=== PATIENT | female | born 1970 | race American Indian/Alaskan Native ===

== ENCOUNTER 2016-12-08 12:52 | Emergency (ER) | payer SELFPAY ==
[2016-12-08 13:44] VITALS: BP 131/79
[2016-12-08] MEDS ORDERED: CLEOCIN PO ONE (14:13)
[2016-12-08] MEDS ORDERED: NORCO 5/325 PO ONE (14:13)
--- NOTE | 2016-12-08 14:17 | Emergency Department Report ---
ED ENT HPI - General Chief complaint: Dental/Oral Stated complaint: SWOLLEN MOUTH Time Seen by Provider: 12/08/16 14:13 Source: patient Mode of arrival: Ambulatory Limitations: No Limitations - History of Present Illness Initial comments: Patient reports upper left dental pain with facial swelling that started three days ago complaint: tooth pain Onset/Timin -: days(s) Location: tooth # (10) 1 - tenderness with palpation Severity: severe Severity scale (0 -10): 10 Quality: aching, constant, other (throbbing) Consistency: constant Improves with: none Worsens with: eating Context-Epistaxis: other (none) Context- Dental: history of dental caries, poor dental care Context- Ear: other (none) Associated Symptoms: gum swelling, toothache. denies: fever, cough, pain with swallowing, sore throat, tinnitus, hearing loss, discharge from ear, rhinorrhea - Related Data Home Medications Medication Instructions Recorded Confirmed Last Taken Carvedilol [Coreg] 25 mg PO BID 07/09/14 07/09/14 07/09/14 Clopidogrel Bisulfate [Plavix] 75 mg PO DAILY 07/09/14 07/09/14 07/09/14 Sennosides [Senna Lax] 8.6 mg PO DAILY 07/09/14 07/09/14 07/09/14 levETIRAcetam [Keppra] 500 mg PO BID 07/09/14 07/09/14 07/09/14 Previous Rx's Medication Instructions Recorded Last Taken Type Acetaminophen/Codeine [Tylenol #3] 1 tab PO Q6H PRN #15 tab 11/14/14 Unknown Rx traMADol [Ultram 50 MG tab] 50 mg PO Q6HR PRN #20 tablet 11/14/14 Unknown Rx Clindamycin [Clindamycin CAP] 300 mg PO Q8H #30 cap 12/08/16 Unknown Rx HYDROcodone/APAP 5-325 [[place] 1 each PO Q6HR PRN #10 tablet 12/08/16 Unknown Rx 5/325] Ibuprofen [Motrin 600 MG tab] 600 mg PO Q8H PRN #30 tablet 12/08/16 Unknown Rx Allergies Allergy/AdvReac Type Severity Reaction Status Date / Time No Known Allergies Allergy Unverified 02/07/14 18:03 ED Dental HPI - General Chief complaint: Dental/Oral Stated complaint: SWOLLEN MOUTH Source: patient Mode of arrival: Ambulatory Limitations: No Limitations - Related Data Home Medications Medication Instructions Recorded Confirmed Last Taken Carvedilol [Coreg] 25 mg PO BID 07/09/14 07/09/14 07/09/14 Clopidogrel Bisulfate [Plavix] 75 mg PO DAILY 07/09/14 07/09/14 07/09/14 Sennosides [Senna Lax] 8.6 mg PO DAILY 07/09/14 07/09/14 07/09/14 levETIRAcetam [Keppra] 500 mg PO BID 07/09/14 07/09/14 07/09/14 Previous Rx's Medication Instructions Recorded Last Taken Type Acetaminophen/Codeine [Tylenol #3] 1 tab PO Q6H PRN #15 tab 11/14/14 Unknown Rx traMADol [Ultram 50 MG tab] 50 mg PO Q6HR PRN #20 tablet 11/14/14 Unknown Rx Clindamycin [Clindamycin CAP] 300 mg PO Q8H #30 cap 12/08/16 Unknown Rx HYDROcodone/APAP 5-325 [[place] 1 each PO Q6HR PRN #10 tablet 12/08/16 Unknown Rx 5/325] Ibuprofen [Motrin 600 MG tab] 600 mg PO Q8H PRN #30 tablet 12/08/16 Unknown Rx Allergies Allergy/AdvReac Type Severity Reaction Status Date / Time No Known Allergies Allergy Unverified 02/07/14 18:03 ED Review of Systems ROS: Stated complaint: SWOLLEN MOUTH Other details as noted in HPI Constitutional: denies: chills, diaphoresis, fever, malaise, weakness Eyes: denies: eye pain, vision change ENT: dental pain. denies: ear pain, throat pain, hearing loss, epistaxis, congestion Respiratory: denies: cough, orthopnea, shortness of breath, SOB with exertion, SOB at rest, stridor, wheezing Cardiovascular: denies: chest pain, palpitations, dyspnea on exertion, orthopnea , edema, syncope, paroxysmal nocturnal dyspnea Gastrointestinal: denies: abdominal pain, nausea, vomiting, diarrhea Musculoskeletal: denies: back pain, joint swelling, arthralgia Skin: denies: rash, lesions, change in color, change in hair/nails, pruritus Neurological: denies: headache, weakness Psychiatric: denies: anxiety, depression Hematological/Lymphatic: denies: easy bleeding, easy bruising, swollen glands ED Past Medical Hx - Past Medical History Previous Medical History?: No Hx Psychiatric Treatment: Yes (ETOH abuse/cocaine abuse) - Surgical History Past Surgical History?: No - Social History Smoking Status: Current Every Day Smoker Substance Use Type: None - Medications Home Medications: Home Medications Medication Instructions Recorded Confirmed Last Taken Type Carvedilol [Coreg] 25 mg PO BID 07/09/14 07/09/14 07/09/14 History Clopidogrel Bisulfate [Plavix] 75 mg PO DAILY 07/09/14 07/09/14 07/09/14 History Sennosides [Senna Lax] 8.6 mg PO DAILY 07/09/14 07/09/14 07/09/14 History levETIRAcetam [Keppra] 500 mg PO BID 07/09/14 07/09/14 07/09/14 History Acetaminophen/Codeine [Tylenol #3] 1 tab PO Q6H PRN #15 tab 11/14/14 Unknown Rx traMADol [Ultram 50 MG tab] 50 mg PO Q6HR PRN #20 tablet 11/14/14 Unknown Rx Clindamycin [Clindamycin CAP] 300 mg PO Q8H #30 cap 12/08/16 Unknown Rx HYDROcodone/APAP 5-325 [[place] 1 each PO Q6HR PRN #10 tablet 12/08/16 Unknown Rx 5/325] Ibuprofen [Motrin 600 MG tab] 600 mg PO Q8H PRN #30 tablet 12/08/16 Unknown Rx ED Physical Exam - General Limitations: No Limitations General appearance: alert, in no apparent distress - Head Head exam: Present: atraumatic, normocephalic, normal inspection - Eye Eye exam: Present: normal appearance, PERRL, EOMI Pupils: Present: normal accommodation - ENT ENT exam: Present: mucous membranes moist, TM's normal bilaterally, normal external ear exam. Absent: mucous membranes dry - Expanded ENT Exam Expanded Ear exam: Present: normal external inspection. Absent: auricular hematoma, auricular trauma Mouth exam: Present: normal external inspection, tongue normal. Absent: drooling, trismus, muffled voice, tongue elevation, laceration Teeth exam: Present: dental tenderness # (10), gingival enlargement. Absent: dental caries, fractured tooth # Throat exam: Positive: normal inspection. Negative: tonsillar erythema, tonsillomegaly, tonsillar exudate, R peritonsillar mass, L peritonsillar mass - Neck Neck exam: Present: normal inspection, full ROM. Absent: tenderness, meningismus, lymphadenopathy, thyromegaly - Respiratory Respiratory exam: Present: normal lung sounds bilaterally. Absent: respiratory distress, wheezes, rales, rhonchi, stridor, chest wall tenderness, accessory muscle use, decreased breath sounds, prolonged expiratory - Cardiovascular Cardiovascular Exam: Present: regular rate, normal rhythm, normal heart sounds. Absent: bradycardia, tachycardia, irregular rhythm, systolic murmur, diastolic murmur, rubs, gallop - Extremities Exam Extremities exam: Present: normal inspection, full ROM, normal capillary refill. Absent: tenderness, pedal edema, joint swelling - Back Exam Back exam: Present: normal inspection, full ROM - Neurological Exam Neurological exam: Present: alert, oriented X3, CN II-XII intact, normal gait, reflexes normal. Absent: motor sensory deficit - Psychiatric Psychiatric exam: Present: normal affect, normal mood. Absent: depressed, agitated - Skin Skin exam: Present: warm, dry, intact, normal color. Absent: rash ED Course Vital Signs 12/08/16 13:39 Temperature 97.8 F Pulse Rate 71 Blood Pressure 131/79 O2 Sat by Pulse 100 Oximetry - Reevaluation(s) Reevaluation #1: 12/08/16 14:21 oral antibiotic and pain medication ordered ED Medical Decision Making - Lab Data Vital Signs 12/08/16 13:39 Temperature 97.8 F Pulse Rate 71 Blood Pressure 131/79 O2 Sat by Pulse 100 Oximetry - Medical Decision Making During the course of ED, oral pain and antibiotic medications were ordered. Patient was sent home with prescriptions for Ibuprofen, Clindamycin and [place], instructed to follow up with dentistry this week, she verbalized understanding - Differential Diagnosis Dental Pain, Dental Abscess Critical care attestation.: If time is entered above; I have spent that time in minutes in the direct care of this critically ill patient, excluding procedure time. ED Disposition Clinical Impression: Pain, dental Disposition: DC-01 TO HOME OR SELFCARE Is pt being admited?: No Does the pt Need Aspirin: No Condition: Stable Instructions: Toothache (ED) Additional Instructions: Take medication as directed. No drinking, driving or operating heavy machinery while taking pain medication. Follow up with the selective referral given at discharge. Return back to the ED for worsening symptoms or concerns Prescriptions: Clindamycin [Clindamycin CAP] 300 mg PO Q8H #30 cap HYDROcodone/APAP 5-325 [[place] 5/325] 1 each PO Q6HR PRN #10 tablet PRN Reason: Pain , Severe (7-10) Ibuprofen [Motrin 600 MG tab] 600 mg PO Q8H PRN #30 tablet PRN Reason: Pain Referrals: [facility] [Outside] - 3-5 Days [facility] [Outside] - 3-5 Days Forms: Work/School Release Form(ED) Time of Disposition: 14:29
== END 2016-12-08 15:01 | disposition home or self-care (01) ==
LOC: ED 12:52
DX: K08.89 Other specified disorders of teeth and supporting structures (principal); R22.0 Localized swelling, mass and lump, head; F14.10 Cocaine abuse, uncomplicated; F17.200 Nicotine dependence, unspecified, uncomplicated
CPT/HCPCS: 99282

== ENCOUNTER 2018-01-07 13:53 | Emergency (ER) | payer SELFPAY ==
[2018-01-07 15:03] VITALS: BP 138/92
[2018-01-07] MEDS ORDERED: COLCHICINE PO ONE ×2 (15:36)
[2018-01-07] MEDS ORDERED: MOTRIN PO ONE (15:36)
--- NOTE | 2018-01-07 15:37 | Emergency Department Report ---
ED Extremity Problem HPI - General Chief complaint: Extremity Injury, Lower Stated complaint: RT FOOT SWELLING Time Seen by Provider: 01/07/18 15:26 Source: patient Mode of arrival: Ambulatory Limitations: No Limitations - History of Present Illness Initial comments: Patient is a 48 Female who is presenting with right foot pain for approximately a month. Patient states she has difficulty time wearing shoes. The majority of her pain is at the base of the great toe. Patient does drink socially quite frequently. She denies any trauma or fevers chills nausea vomiting. Patient states the pain is 8 out of 10 in severity and sometimes radiates up into the leg. Patient denies any calf swelling. - Related Data Home Medications Medication Instructions Recorded Confirmed Last Taken Carvedilol [Coreg] 25 mg PO BID 07/09/14 07/09/14 07/09/14 Clopidogrel Bisulfate [Plavix] 75 mg PO DAILY 07/09/14 07/09/14 07/09/14 Sennosides [Senna Lax] 8.6 mg PO DAILY 07/09/14 07/09/14 07/09/14 levETIRAcetam [Keppra] 500 mg PO BID 07/09/14 07/09/14 07/09/14 Previous Rx's Medication Instructions Recorded Last Taken Type Acetaminophen/Codeine [Tylenol #3] 1 tab PO Q6H PRN #15 tab 11/14/14 Unknown Rx traMADol [Ultram 50 MG tab] 50 mg PO Q6HR PRN #20 tablet 11/14/14 Unknown Rx Clindamycin [Clindamycin CAP] 300 mg PO Q8H #30 cap 12/08/16 Unknown Rx HYDROcodone/APAP 5-325 [[place] 1 each PO Q6HR PRN #10 tablet 12/08/16 Unknown Rx 5/325] Ibuprofen [Motrin 600 MG tab] 600 mg PO Q8H PRN #30 tablet 12/08/16 Unknown Rx HYDROcodone/APAP 5-325 [[place] 1 each PO Q6HR PRN #15 tablet 01/07/18 Unknown Rx 5/325] Ibuprofen [Motrin] 800 mg PO Q8HR PRN #20 tablet 01/07/18 Unknown Rx Allergies Allergy/AdvReac Type Severity Reaction Status Date / Time No Known Allergies Allergy Verified 01/07/18 14:37 ED Review of Systems ROS: Stated complaint: RT FOOT SWELLING Other details as noted in HPI Comment: All other systems reviewed and negative ED Past Medical Hx - Past Medical History Previous Medical History?: Yes Hx Psychiatric Treatment: Yes (ETOH abuse/cocaine abuse) - Surgical History Past Surgical History?: No - Social History Smoking Status: Current Every Day Smoker - Medications Home Medications: Home Medications Medication Instructions Recorded Confirmed Last Taken Type Carvedilol [Coreg] 25 mg PO BID 07/09/14 07/09/14 07/09/14 History Clopidogrel Bisulfate [Plavix] 75 mg PO DAILY 07/09/14 07/09/14 07/09/14 History Sennosides [Senna Lax] 8.6 mg PO DAILY 07/09/14 07/09/14 07/09/14 History levETIRAcetam [Keppra] 500 mg PO BID 07/09/14 07/09/14 07/09/14 History Acetaminophen/Codeine [Tylenol #3] 1 tab PO Q6H PRN #15 tab 11/14/14 Unknown Rx traMADol [Ultram 50 MG tab] 50 mg PO Q6HR PRN #20 tablet 11/14/14 Unknown Rx Clindamycin [Clindamycin CAP] 300 mg PO Q8H #30 cap 12/08/16 Unknown Rx HYDROcodone/APAP 5-325 [[place] 1 each PO Q6HR PRN #10 tablet 12/08/16 Unknown Rx 5/325] Ibuprofen [Motrin 600 MG tab] 600 mg PO Q8H PRN #30 tablet 12/08/16 Unknown Rx HYDROcodone/APAP 5-325 [[place] 1 each PO Q6HR PRN #15 tablet 01/07/18 Unknown Rx 5/325] Ibuprofen [Motrin] 800 mg PO Q8HR PRN #20 tablet 01/07/18 Unknown Rx ED Physical Exam - General Limitations: No Limitations General appearance: alert, in no apparent distress - Head Head exam: Present: atraumatic, normocephalic - Eye Eye exam: Present: normal appearance - ENT ENT exam: Present: mucous membranes moist - Neck Neck exam: Present: normal inspection - Respiratory Respiratory exam: Present: normal lung sounds bilaterally. Absent: respiratory distress, wheezes, rales, rhonchi - Cardiovascular Cardiovascular Exam: Present: regular rate, normal rhythm. Absent: systolic murmur, diastolic murmur, rubs, gallop - GI/Abdominal GI/Abdominal exam: Present: soft, normal bowel sounds - Extremities Exam Extremities exam: Present: normal inspection, tenderness (she has tenderness and mild swelling with no warmth or erythema to the base of the great toe.) - Back Exam Back exam: Present: normal inspection - Neurological Exam Neurological exam: Present: alert, oriented X3 - Psychiatric Psychiatric exam: Present: normal affect, normal mood - Skin Skin exam: Present: warm, dry, intact, normal color. Absent: rash ED Course Vital Signs 01/07/18 14:55 Temperature 98.4 F Pulse Rate 80 Respiratory 16 Rate Blood Pressure 138/92 O2 Sat by Pulse 96 Oximetry ED Medical Decision Making - Medical Decision Making H and likely has gouty arthritis secondary to alcohol abuse. Patient will be started on colchicine and given meds for pain relief. Critical care attestation.: If time is entered above; I have spent that time in minutes in the direct care of this critically ill patient, excluding procedure time. ED Disposition Clinical Impression: Gout Qualifiers: Gout site: toe Gout etiology: unspecified cause Chronicity: acute Laterality: right Qualified Code(s): M10.9 - Gout, unspecified Disposition: DC-01 TO HOME OR SELFCARE Is pt being admited?: No Does the pt Need Aspirin: No Condition: Stable Instructions: Acute Gouty Arthritis (ED) Referrals: PRIMARY CARE [Primary Care Provider] - 3-5 Days Time of Disposition: 15:37
== END 2018-01-07 16:24 | disposition home or self-care (01) ==
LOC: ED 13:53
DX: M10.9 Gout, unspecified (principal); F14.10 Cocaine abuse, uncomplicated; F10.10 Alcohol abuse, uncomplicated; F17.200 Nicotine dependence, unspecified, uncomplicated
CPT/HCPCS: 99282

== ENCOUNTER → 2018-01-07 | Emergency (ER) | payer SELFPAY ==
[2018-01-07 14:44] VITALS: BP 127/67
--- NOTE | 2018-01-07 16:16 | Emergency Department Report ---
Blank Doc - Documentation Documentation: This patient encounter was entered in error. Please delete
== END | disposition left against medical advice (07) ==
LOC: ED 13:55
DX: R10.2 Pelvic and perineal pain (principal); Z53.21 Procedure and treatment not carried out due to patient leaving prior to being seen by health care provider

== ENCOUNTER 2018-12-06 09:18 | Emergency (ER) | payer SELFPAY ==
[2018-12-06] MEDS ORDERED: CLARITIN PO ONE (09:43)
[2018-12-06] MEDS ORDERED: IBUPROFEN PO ONE (09:43)
--- NOTE | 2018-12-06 09:49 | Emergency Department Report ---
- General Chief Complaint: Fall Stated Complaint: BACK PAIN/FALL INJURY Time Seen by Provider: 12/06/18 09:36 Source: patient Mode of arrival: Wheelchair Limitations: No Limitations - History of Present Illness MD Complaint: cough, rhinorrhea, nasal congestion, other (right ear ache) -: Gradual, days(s) (3 approximately) Severity: mild Severity scale (0 -10): 1 Quality: aching Consistency: intermittent Improves With: nothing Worsens With: nothing Context: sick contacts (coughing runny nose) Associated Symptoms: myalgias, rhinorrhea, nasal congestion, cough, hoarseness, ear pain. denies: fever, chills, diaphoresis, headache, stiff neck, chest pain, shortness of breath, abdominal pain, nausea, vomiting, diarrhea, rash, confusion, right sweats, weight loss, epistaxis Treatments Prior to Arrival: none - Related Data Home Medications Medication Instructions Recorded Confirmed Last Taken Carvedilol [Coreg] 25 mg PO BID 07/09/14 07/09/14 07/09/14 Clopidogrel Bisulfate [Plavix] 75 mg PO DAILY 07/09/14 07/09/14 07/09/14 Sennosides [Senna Lax] 8.6 mg PO DAILY 07/09/14 07/09/14 07/09/14 levETIRAcetam [Keppra] 500 mg PO BID 07/09/14 07/09/14 07/09/14 Previous Rx's Medication Instructions Recorded Last Taken Type Acetaminophen/Codeine [Tylenol #3] 1 tab PO Q6H PRN #15 tab 11/14/14 Unknown Rx traMADol [Ultram 50 MG tab] 50 mg PO Q6HR PRN #20 tablet 11/14/14 Unknown Rx Clindamycin [Clindamycin CAP] 300 mg PO Q8H #30 cap 12/08/16 Unknown Rx HYDROcodone/APAP 5-325 [[place] 1 each PO Q6HR PRN #10 tablet 12/08/16 Unknown Rx 5/325] Ibuprofen [Motrin 600 MG tab] 600 mg PO Q8H PRN #30 tablet 12/08/16 Unknown Rx HYDROcodone/APAP 5-325 [[place] 1 each PO Q6HR PRN #15 tablet 01/07/18 Unknown Rx 5/325] Ibuprofen [Motrin] 800 mg PO Q8HR PRN #20 tablet 01/07/18 Unknown Rx Cetirizine HCl [ZyrTEC 10mg cap] 10 mg PO DAILY #14 capsule 12/06/18 Unknown Rx Ibuprofen [Motrin 600 MG tab] 600 mg PO Q6H PRN #18 tablet 12/06/18 Unknown Rx Allergies Allergy/AdvReac Type Severity Reaction Status Date / Time No Known Allergies Allergy Verified 01/07/18 14:37 ED Review of Systems ROS: Stated complaint: BACK PAIN/FALL INJURY Other details as noted in HPI ED Past Medical Hx - Past Medical History Hx Psychiatric Treatment: Yes (ETOH abuse/cocaine abuse) - Surgical History Past Surgical History?: No - Social History Smoking Status: Current Every Day Smoker Substance Use Type: Alcohol - Medications Home Medications: Home Medications Medication Instructions Recorded Confirmed Last Taken Type Carvedilol [Coreg] 25 mg PO BID 07/09/14 07/09/14 07/09/14 History Clopidogrel Bisulfate [Plavix] 75 mg PO DAILY 07/09/14 07/09/14 07/09/14 History Sennosides [Senna Lax] 8.6 mg PO DAILY 07/09/14 07/09/14 07/09/14 History levETIRAcetam [Keppra] 500 mg PO BID 07/09/14 07/09/14 07/09/14 History Acetaminophen/Codeine [Tylenol #3] 1 tab PO Q6H PRN #15 tab 11/14/14 Unknown Rx traMADol [Ultram 50 MG tab] 50 mg PO Q6HR PRN #20 tablet 11/14/14 Unknown Rx Clindamycin [Clindamycin CAP] 300 mg PO Q8H #30 cap 12/08/16 Unknown Rx HYDROcodone/APAP 5-325 [[place] 1 each PO Q6HR PRN #10 tablet 12/08/16 Unknown Rx 5/325] Ibuprofen [Motrin 600 MG tab] 600 mg PO Q8H PRN #30 tablet 12/08/16 Unknown Rx HYDROcodone/APAP 5-325 [[place] 1 each PO Q6HR PRN #15 tablet 01/07/18 Unknown Rx 5/325] Ibuprofen [Motrin] 800 mg PO Q8HR PRN #20 tablet 01/07/18 Unknown Rx Cetirizine HCl [ZyrTEC 10mg cap] 10 mg PO DAILY #14 capsule 12/06/18 Unknown Rx Ibuprofen [Motrin 600 MG tab] 600 mg PO Q6H PRN #18 tablet 12/06/18 Unknown Rx ED Physical Exam - General Limitations: No Limitations ED Course Vital Signs 12/06/18 12/06/18 09:21 09:28 Temperature 98.4 F Pulse Rate 110 H Respiratory 16 19 Rate Blood Pressure 162/118 [Left] O2 Sat by Pulse 96 Oximetry ED Medical Decision Making - Medical Decision Making Patient comfortable. Plan treat symptomatically for likely URI. Plan discharge with outpatient follow up. Return if any worsening. Critical care attestation.: If time is entered above; I have spent that time in minutes in the direct care of this critically ill patient, excluding procedure time. ED Disposition Clinical Impression: URI (upper respiratory infection) Qualifiers: URI type: unspecified URI Qualified Code(s): J06.9 - Acute upper respiratory infection, unspecified Disposition: DC-01 TO HOME OR SELFCARE Is pt being admited?: No Condition: Stable Instructions: Upper Respiratory Infection (ED) Prescriptions: Ibuprofen [Motrin 600 MG tab] 600 mg PO Q6H PRN #18 tablet PRN Reason: Pain Cetirizine HCl [ZyrTEC 10mg cap] 10 mg PO DAILY #14 capsule Referrals: [facility] [Outside] - as needed Time of Disposition: 09:47
[2018-12-06] MEDS ORDERED: ROBAXIN PO ONE (10:07)
[2018-12-06] MEDS ORDERED: TORADOL IM ONE (10:07)
--- NOTE | 2018-12-06 10:52 | Emergency Department Report ---
ED Fall HPI - General Chief Complaint: Fall Stated Complaint: BACK PAIN/FALL INJURY Time Seen by Provider: 12/06/18 09:36 Source: patient Mode of arrival: Wheelchair - History of Present Illness MD Complaint: fall -: Gradual, days(s) (1) Fall From: standing Fall Witnessed: yes, by bystander Place Fall Occurred: street ([facility]) Loss of Consciousness: none Prolonged Down Time?: no Symptoms Prior to Fall: none Location: back Location - Extremities: Left: Shoulder, Leg (hip) Severity: mild Severity scale (0 -10): 1 Quality: aching Context: tripped/slipped Associated Symptoms: denies: headache, neck pain, numbness, chest paint, shortness of breath, abdominal pain, hematuria, unable to walk, lightheaded, vertigo, confusion - Related Data Home Medications Medication Instructions Recorded Confirmed Last Taken Carvedilol [Coreg] 25 mg PO BID 07/09/14 07/09/14 07/09/14 Clopidogrel Bisulfate [Plavix] 75 mg PO DAILY 07/09/14 07/09/14 07/09/14 Sennosides [Senna Lax] 8.6 mg PO DAILY 07/09/14 07/09/14 07/09/14 levETIRAcetam [Keppra] 500 mg PO BID 07/09/14 07/09/14 07/09/14 Previous Rx's Medication Instructions Recorded Last Taken Type Acetaminophen/Codeine [Tylenol #3] 1 tab PO Q6H PRN #15 tab 11/14/14 Unknown Rx traMADol [Ultram 50 MG tab] 50 mg PO Q6HR PRN #20 tablet 11/14/14 Unknown Rx Clindamycin [Clindamycin CAP] 300 mg PO Q8H #30 cap 12/08/16 Unknown Rx HYDROcodone/APAP 5-325 [[place] 1 each PO Q6HR PRN #10 tablet 12/08/16 Unknown Rx 5/325] Ibuprofen [Motrin 600 MG tab] 600 mg PO Q8H PRN #30 tablet 12/08/16 Unknown Rx HYDROcodone/APAP 5-325 [[place] 1 each PO Q6HR PRN #15 tablet 01/07/18 Unknown Rx 5/325] Ibuprofen [Motrin] 800 mg PO Q8HR PRN #20 tablet 01/07/18 Unknown Rx Cetirizine HCl [ZyrTEC 10mg cap] 10 mg PO DAILY #14 capsule 12/06/18 Unknown Rx Ibuprofen [Motrin 600 MG tab] 600 mg PO Q6H PRN #18 tablet 12/06/18 Unknown Rx Ibuprofen [Motrin 600 MG tab] 600 mg PO Q6H PRN #24 tablet 12/06/18 Unknown Rx methOCARBAMOL [Robaxin TAB] 750 mg PO BID PRN #14 tab 12/06/18 Unknown Rx Allergies Allergy/AdvReac Type Severity Reaction Status Date / Time No Known Allergies Allergy Verified 01/07/18 14:37 ED Review of Systems ROS: Stated complaint: BACK PAIN/FALL INJURY Other details as noted in HPI Other: GENERAL: No weight change, fatigue, fever, chills, or night sweats SKIN: No changes in skin or hair, no itching, no rashes, no jaundice HEAD: No trauma, headache, or visual changes EYES: No blurriness, tearing, itching, acute visual loss, conjunctival discoloration, or scleral icterus EARS: No hearing loss, tinnitus, vertigo, or earache NOSE: No rhinorrhea, stuffiness, sneezing, itching, or epistaxis MOUTH: No bleeding gums, hoarseness, sore throat, or swelling CARDIAC: No new murmur, chest pain, palpitations, dyspnea on exertion, orthopnea, PND, or edema RESPIRATORY: No shortness of breath, wheeze, cough, sputum production, hemoptysis, pneumonia, asthma, bronchitis, or emphysema GI: No change in appetite, nausea, vomiting, dysphagia, diarrhea, constipation, hematemesis, melena, hematochezia, or abdominal pain URINARY: No frequency, urgency, polyuria, dysuria, hematuria, or incontinence MUSCULOSKELETAL: Left shoulder and left hip and back pain after falling at the skating rink yesterday. Reports walked after fall and went home and showered last night with no problem. No muscle weakness, joint stiffness, redness, swelling NEUROLOGIC: No headache, loss of sensation, numbness, tingling, tremors, weakness, paralysis, seizures HEMATOLOGIC: No anemia, easy bruising, bleeding, petechiae, or purpura ENDOCRINE: No hot or cold intolerance, sweating, polyuria, polydipsia or, polyphagia no thyroid problems PSYCHIATRIC: No change in mood, no anxiety, no depression . ED Past Medical Hx - Past Medical History Hx Psychiatric Treatment: Yes (ETOH abuse/cocaine abuse) - Surgical History Past Surgical History?: No - Social History Smoking Status: Current Every Day Smoker Substance Use Type: Alcohol - Medications Home Medications: Home Medications Medication Instructions Recorded Confirmed Last Taken Type Carvedilol [Coreg] 25 mg PO BID 07/09/14 07/09/14 07/09/14 History Clopidogrel Bisulfate [Plavix] 75 mg PO DAILY 07/09/14 07/09/14 07/09/14 History Sennosides [Senna Lax] 8.6 mg PO DAILY 07/09/14 07/09/14 07/09/14 History levETIRAcetam [Keppra] 500 mg PO BID 07/09/14 07/09/14 07/09/14 History Acetaminophen/Codeine [Tylenol #3] 1 tab PO Q6H PRN #15 tab 11/14/14 Unknown Rx traMADol [Ultram 50 MG tab] 50 mg PO Q6HR PRN #20 tablet 11/14/14 Unknown Rx Clindamycin [Clindamycin CAP] 300 mg PO Q8H #30 cap 12/08/16 Unknown Rx HYDROcodone/APAP 5-325 [[place] 1 each PO Q6HR PRN #10 tablet 12/08/16 Unknown Rx 5/325] Ibuprofen [Motrin 600 MG tab] 600 mg PO Q8H PRN #30 tablet 12/08/16 Unknown Rx HYDROcodone/APAP 5-325 [[place] 1 each PO Q6HR PRN #15 tablet 01/07/18 Unknown Rx 5/325] Ibuprofen [Motrin] 800 mg PO Q8HR PRN #20 tablet 01/07/18 Unknown Rx Cetirizine HCl [ZyrTEC 10mg cap] 10 mg PO DAILY #14 capsule 12/06/18 Unknown Rx Ibuprofen [Motrin 600 MG tab] 600 mg PO Q6H PRN #18 tablet 12/06/18 Unknown Rx Ibuprofen [Motrin 600 MG tab] 600 mg PO Q6H PRN #24 tablet 12/06/18 Unknown Rx methOCARBAMOL [Robaxin TAB] 750 mg PO BID PRN #14 tab 12/06/18 Unknown Rx ED Physical Exam - General Limitations: No Limitations - Other Other exam information: GENERAL: Patient in no acute distress HEAD: Normocephalic, atraumatic EYES: PERRLA, EOM intact, no scleral icterus, no conjunctival hemorrhage, visual dominguez and acuity wnl NOSE: No tenderness, discharge, sinus tenderness MOUTH: No erythema, bleeding, exudate HEART: Regular rate and rhythm, no murmur, S1-S2 are auscultated, pulses are sy mmetric LUNGS: No respiratory distress. Bilateral breath sounds, No tachypnea, No retractions, No wheezing, rales, rhonchi ABDOMEN: Normal bowel sounds, abdomen soft, no tenderness, no rebound, no gu arding, no distention, no masses, no CVA tenderness MUSCULOSKELETAL: Normal joint range of motion, no redness, no swelling, no tenderness NEUROLOGIC: GCS 15, Alert and Oriented x3, Cranial nerves intact, normal sensation, normal strength, antalgic gait, no cerebellar deficit, NIHSS 0 PSYCHIATRIC: No homicidal or suicidal ideation, no anxiety, no depression, no hallucinations SKIN: Skin is warm and dry, no wounds, no rashes ED Course Vital Signs 12/06/18 12/06/18 12/06/18 09:21 09:28 12:31 Temperature 98.4 F Pulse Rate 110 H 88 Respiratory 16 19 16 Rate Blood Pressure 162/118 154/100 [Left] O2 Sat by Pulse 96 100 Oximetry ED Medical Decision Making - Radiology Data Radiology results: report reviewed (Patient comfortable. Updated with results. Plan discharge with outpatient follow up. Return if any worsening. ) - Medical Decision Making Patient comfortable. Updated with results. Plan discharge with outpatient follow up. Return if any worsening. Critical care attestation.: If time is entered above; I have spent that time in minutes in the direct care of this critically ill patient, excluding procedure time. ED Disposition Clinical Impression: Back pain at L4-L5 level Contusion Qualifiers: Encounter type: initial encounter Contusion area: lower back Qualified Code(s): S30.0XXA - Contusion of lower back and pelvis, initial encounter Fall Qualifiers: Encounter type: initial encounter Qualified Code(s): W19.XXXA - Unspecified fall, initial encounter Disposition: TO HOME OR SELFCARE Is pt being admited?: No Condition: Stable Instructions: Acute Low Back Pain (ED), Contusion in Adults (ED), Fall Prevention (ED) Prescriptions: Ibuprofen [Motrin 600 MG tab] 600 mg PO Q6H PRN #18 tablet PRN Reason: Pain Ibuprofen [Motrin 600 MG tab] 600 mg PO Q6H PRN #24 tablet PRN Reason: Pain methOCARBAMOL [Robaxin TAB] 750 mg PO BID PRN #14 tab PRN Reason: Spasms Cetirizine HCl [ZyrTEC 10mg cap] 10 mg PO DAILY #14 capsule Referrals: [facility] [place] [Outside] - as needed Time of Disposition: 10:48
--- NOTE | 2018-12-06 11:50 | XRay Report ---
LEFT HIP, 2 VIEWS INDICATION / CLINICAL INFORMATION: fall. Patient injured hip during skating COMPARISON: None available. FINDINGS: The left hip is intact and without visible fracture or dislocation. AP view of the pelvis is also unr emarkable. IMPRESSION: Negative exam. Signer Name: Shirley Garrett MD Signed: 12/06/2018 11:45 AM Workstation Name: [id number]
--- NOTE | 2018-12-06 11:51 | XRay Report ---
LEFT SHOULDER, 3 VIEWS INDICATION / CLINICAL INFORMATION: fall. Patient fell skating COMPARISON: None available. FINDINGS: Views of left shoulder are unremarkable. No fracture, dislocation, or significant degenerative change . Visualized left ribs are intact. IMPRESSION: Negative exam. Signer Name: Shirley Garrett MD Signed: 12/06/2018 11:46 AM Workstation Name: [id number]
[2018-12-06 12:32] VITALS: BP 154/100
== END 2018-12-06 12:31 | disposition home or self-care (01) ==
LOC: ED 09:18
DX: S30.0XXA Contusion of lower back and pelvis, initial encounter (principal); W01.0XXA Fall on same level from slipping, tripping and stumbling without subsequent striking against object, initial encounter; Y93.89 Activity, other specified; Y92.89 Other specified places as the place of occurrence of the external cause; Y99.8 Other external cause status
CPT/HCPCS: 73030; 73502; 96372; 99283; J1885

== ENCOUNTER 2019-03-15 10:41 | Emergency (ER) | payer SELFPAY ==
--- NOTE | 2019-03-15 12:20 | Emergency Department Report ---
Blank Doc - Documentation Documentation: 49-year-old female that presents with vaginal bleeding and pelvic pain. Stated is about 12 weeks . This initial assessment/diagnostic orders/clinical plan/treatment(s) is/are subject to change based on patient's health status, clinical progression and re- assessment by fellow clinical providers in the ED. Further treatment and workup at subsequent clinical providers discretion. Patient/guardians urged not to elope from the ED as their condition may be serious if not clinically assessed and managed. Initial orders include: 1- Patient sent to [facility] for further evaluation and treatment 2- labs 3- UA 4- US OB
[2019-03-15 12:57] LABS: Bilirubin,Urine NEG (Negative); Blood,Urine LG (Negative); Color,Urine Red (Yellow); RBC,Urine > 182.0 /HPF (0.0-6.0); Urobilinogen,Urine < 2.0 mg/dL (<2.0)
[2019-03-15 13:32] LABS: Basophils % (Auto) 0.6 % (0.0-1.8); Eosinophils # (Auto) 0.1 K/mm3 (0.0-0.4); Eosinophils % (Auto) 2.6 % (0.0-4.3); Hematocrit 39.7 % (30.3-42.9); Hemoglobin 13.5 gm/dl (10.1-14.3); Lymphocytes # (Auto) 1.3 K/mm3 (1.2-5.4); Lymphocytes % (Auto) 24.4 % (13.4-35.0); Mean Corpuscular HGB Conc 34 % (30-34); Mean Corpuscular Volume 95 fl (79-97); Monocytes # (Auto) 0.4 K/mm3 (0.0-0.8); Monocytes % (Auto) 6.7 % (0.0-7.3); Platelet Count 229 K/mm3 (140-440); Red Blood Count 4.17 M/mm3 (3.65-5.03); Red Cell Distribution Width 15.7 % (13.2-15.2)
--- NOTE | 2019-03-15 14:32 | Emergency Department Report ---
ED Female HPI - General Chief complaint: Vaginal Bleeding Stated complaint: 12 WKS /BLEEDING Time Seen by Provider: 03/15/19 12:19 Source: patient Mode of arrival: Ambulatory Limitations: No Limitations - History of Present Illness Initial comments: This is a 49-year-old -Mosoth[place] female who presents to the emergency room with heavy vaginal bleeding and pelvic pain since this morning. Patient states she is 12 weeks . Reports confirmed while in recovery center 2 months ago. Patient reports vaginal bleeding started around 2 AM this morning. Patient states it felt like she had to have a bowel movement and when she sat on toilet she passed a large clot. She denies follow-up with an [facility]. Denies fever, chills, nausea or vomiting, vaginal discharge, urinary frequency, urgency, or dysuria. MD Complaint: vaginal bleeding, pelvic pain -: This morning Time: 02:00 Location: suprapubic Radiation: non-radiating Severity: mild Severity scale (0 -10): 3 Quality: cramping Consistency: constant Improves with: none Worsens with: none Are you Now?: Yes Last Menstrual Period: 01/08/19 EDC: 10/15/19 Associated Symptoms: vaginal bleeding, abdominal pain. denies: vaginal discharge, nausea/vomiting, fever/chills, headaches, loss of appetite, dysuria, hematuria, rash, seizure, shortness of breath, syncope, weakness - Related Data Sexually active: Yes Home Medications Medication Instructions Recorded Confirmed Last Taken Clopidogrel Bisulfate [Plavix] 75 mg PO DAILY 07/09/14 07/09/14 07/09/14 Sennosides [Senna Lax] 8.6 mg PO DAILY 07/09/14 07/09/14 07/09/14 carvediloL [Coreg] 25 mg PO BID 07/09/14 07/09/14 07/09/14 levETIRAcetam [Keppra] 500 mg PO BID 07/09/14 07/09/14 07/09/14 Previous Rx's Medication Instructions Recorded Last Taken Type Acetaminophen/Codeine [Tylenol #3] 1 tab PO Q6H PRN #15 tab 11/14/14 Unknown Rx traMADoL [Ultram 50 MG tab] 50 mg PO Q6HR PRN #20 tablet 11/14/14 Unknown Rx Clindamycin [Clindamycin CAP] 300 mg PO Q8H #30 cap 12/08/16 Unknown Rx HYDROcodone/APAP 5-325 [[place] 1 each PO Q6HR PRN #10 tablet 12/08/16 Unknown Rx 5/325] Ibuprofen [Motrin 600 MG tab] 600 mg PO Q8H PRN #30 tablet 12/08/16 Unknown Rx HYDROcodone/APAP 5-325 [[place] 1 each PO Q6HR PRN #15 tablet 01/07/18 Unknown Rx 5/325] Ibuprofen [Motrin] 800 mg PO Q8HR PRN #20 tablet 01/07/18 Unknown Rx Cetirizine HCl [ZyrTEC 10mg cap] 10 mg PO DAILY #14 capsule 12/06/18 Unknown Rx Ibuprofen [Motrin 600 MG tab] 600 mg PO Q6H PRN #18 tablet 12/06/18 Unknown Rx Ibuprofen [Motrin 600 MG tab] 600 mg PO Q6H PRN #24 tablet 12/06/18 Unknown Rx methOCARBAMOL [Robaxin TAB] 750 mg PO BID PRN #14 tab 12/06/18 Unknown Rx Phenazopyridine [Pyridium] 200 mg PO TID #6 tab 03/15/19 Unknown Rx Sulfamethoxazole/Trimethoprim 1 each PO BID #6 tablet 03/15/19 Unknown Rx [Bactrim DS TAB] Allergies Allergy/AdvReac Type Severity Reaction Status Date / Time No Known Allergies Allergy Verified 01/07/18 14:37 ED Review of Systems ROS: Stated complaint: 12 WKS /BLEEDING Other details as noted in HPI Constitutional: denies: chills, fever Respiratory: denies: cough, shortness of breath, wheezing Cardiovascular: denies: chest pain, palpitations Gastrointestinal: abdominal pain. denies: nausea, diarrhea Genitourinary: other (vaginal bleeding). denies: urgency, dysuria, discharge Musculoskeletal: denies: back pain, joint swelling, arthralgia Skin: denies: rash, lesions Neurological: denies: headache, weakness, paresthesias Psychiatric: denies: anxiety, depression ED Past Medical Hx - Past Medical History Previous Medical History?: Yes Hx Psychiatric Treatment: Yes (ETOH abuse/cocaine abuse) - Surgical History Past Surgical History?: No - Social History Smoking Status: Current Every Day Smoker Substance Use Type: None - Medications Home Medications: Home Medications Medication Instructions Recorded Confirmed Last Taken Type Clopidogrel Bisulfate [Plavix] 75 mg PO DAILY 07/09/14 07/09/14 07/09/14 History Sennosides [Senna Lax] 8.6 mg PO DAILY 07/09/14 07/09/14 07/09/14 History carvediloL [Coreg] 25 mg PO BID 07/09/14 07/09/14 07/09/14 History levETIRAcetam [Keppra] 500 mg PO BID 07/09/14 07/09/14 07/09/14 History Acetaminophen/Codeine [Tylenol #3] 1 tab PO Q6H PRN #15 tab 11/14/14 Unknown Rx traMADoL [Ultram 50 MG tab] 50 mg PO Q6HR PRN #20 tablet 11/14/14 Unknown Rx Clindamycin [Clindamycin CAP] 300 mg PO Q8H #30 cap 12/08/16 Unknown Rx HYDROcodone/APAP 5-325 [[place] 1 each PO Q6HR PRN #10 tablet 12/08/16 Unknown Rx 5/325] Ibuprofen [Motrin 600 MG tab] 600 mg PO Q8H PRN #30 tablet 12/08/16 Unknown Rx HYDROcodone/APAP 5-325 [[place] 1 each PO Q6HR PRN #15 tablet 01/07/18 Unknown Rx 5/325] Ibuprofen [Motrin] 800 mg PO Q8HR PRN #20 tablet 01/07/18 Unknown Rx Cetirizine HCl [ZyrTEC 10mg cap] 10 mg PO DAILY #14 capsule 12/06/18 Unknown Rx Ibuprofen [Motrin 600 MG tab] 600 mg PO Q6H PRN #18 tablet 12/06/18 Unknown Rx Ibuprofen [Motrin 600 MG tab] 600 mg PO Q6H PRN #24 tablet 12/06/18 Unknown Rx methOCARBAMOL [Robaxin TAB] 750 mg PO BID PRN #14 tab 12/06/18 Unknown Rx Phenazopyridine [Pyridium] 200 mg PO TID #6 tab 03/15/19 Unknown Rx Sulfamethoxazole/Trimethoprim 1 each PO BID #6 tablet 03/15/19 Unknown Rx [Bactrim DS TAB] ED Physical Exam - General Limitations: No Limitations General appearance: alert, in no apparent distress - Respiratory Respiratory exam: Present: normal lung sounds bilaterally. Absent: respiratory distress - Cardiovascular Cardiovascular Exam: Present: regular rate, normal rhythm. Absent: systolic murmur, diastolic murmur, rubs, gallop - GI/Abdominal GI/Abdominal exam: Present: soft, tenderness (right lower quadrant and left lower quadrant), normal bowel sounds. Absent: distended, guarding, rebound, rigid, organomegaly, mass - Extremities Exam Extremities exam: Present: normal inspection - Back Exam Back exam: Absent: CVA tenderness (R), CVA tenderness (L) - Neurological Exam Neurological exam: Present: alert, oriented X3, normal gait - Psychiatric Psychiatric exam: Present: normal affect, normal mood - Skin Skin exam: Present: warm, dry, intact, normal color. Absent: rash ED Course Vital Signs 03/15/19 03/15/19 03/15/19 12:17 15:13 15:47 Temperature 98.5 F 98.1 F Pulse Rate 78 69 Respiratory 20 18 18 Rate Blood Pressure 120/50 Blood Pressure 114/77 [Left] O2 Sat by Pulse 99 100 Oximetry ED Medical Decision Making - Lab Data Result diagrams: 03/15/19 13:01 Lab Results 03/15/19 03/15/19 03/15/19 Range/Units 12:36 13:01 13:01 WBC 5.4 (4.5-11.0) K/mm3 RBC 4.17 (3.65-5.03) M/mm3 Hgb 13.5 (10.1-14.3) gm/dl Hct 39.7 (30.3-42.9) % MCV 95 (79-97) fl MCH 32 (28-32) pg MCHC 34 (30-34) % RDW 15.7 H (13.2-15.2) % Plt Count 229 (140-440) K/mm3 Lymph % (Auto) 24.4 (13.4-35.0) % Nicholas % (Auto) 6.7 (0.0-7.3) % Eos % (Auto) 2.6 (0.0-4.3) % Baso % (Auto) 0.6 (0.0-1.8) % Lymph # 1.3 (1.2-5.4) K/mm3 Nicholas # 0.4 (0.0-0.8) K/mm3 Eos # 0.1 (0.0-0.4) K/mm3 Baso # 0.0 (0.0-0.1) K/mm3 Seg Neutrophils % 65.7 (40.0-70.0) % Seg Neutrophils # 3.6 (1.8-7.7) K/mm3 HCG, Quant < 2 (0-4) mIU/mL Urine Color Red (Yellow) Urine Turbidity Cloudy (Clear) Urine pH 7.0 (5.0-7.0) Ur Specific Rupert 1.014 (1.003-1.030) Urine Protein 100 mg/dl (Negative) mg/dL Urine Glucose (UA) Neg (Negative) mg/dL Urine Ketones Neg (Negative) mg/dL Urine Blood Lg (Negative) Urine Nitrite Neg (Negative) Urine Bilirubin Neg (Negative) Urine Urobilinogen < 2.0 (<2.0) mg/dL Ur Leukocyte Esterase Tr (Negative) Urine WBC (Auto) 40.0 H (0.0-6.0) /HPF Urine RBC (Auto) > 182.0 (0.0-6.0) /HPF U Epithel Cells (Auto) 2.0 (0-13.0) /HPF Blood Type 03/15/19 Range/Units 13:01 WBC (4.5-11.0) K/mm3 RBC (3.65-5.03) M/mm3 Hgb (10.1-14.3) gm/dl Hct (30.3-42.9) % MCV (79-97) fl MCH (28-32) pg MCHC (30-34) % RDW (13.2-15.2) % Plt Count (140-440) K/mm3 Lymph % (Auto) (13.4-35.0) % Nicholas % (Auto) (0.0-7.3) % Eos % (Auto) (0.0-4.3) % Baso % (Auto) (0.0-1.8) % Lymph # (1.2-5.4) K/mm3 Nicholas # (0.0-0.8) K/mm3 Eos # (0.0-0.4) K/mm3 Baso # (0.0-0.1) K/mm3 Seg Neutrophils % (40.0-70.0) % Seg Neutrophils # (1.8-7.7) K/mm3 HCG, Quant (0-4) mIU/mL Urine Color (Yellow) Urine Turbidity (Clear) Urine pH (5.0-7.0) Ur Specific Rupert (1.003-1.030) Urine Protein (Negative) mg/dL Urine Glucose (UA) (Negative) mg/dL Urine Ketones (Negative) mg/dL Urine Blood (Negative) Urine Nitrite (Negative) Urine Bilirubin (Negative) Urine Urobilinogen (<2.0) mg/dL Ur Leukocyte Esterase (Negative) Urine WBC (Auto) (0.0-6.0) /HPF Urine RBC (Auto) (0.0-6.0) /HPF U Epithel Cells (Auto) (0-13.0) /HPF Blood Type O POSITIVE - Radiology Data Radiology results: report reviewed ULTRASOUND PELVIS INDICATION: pelvic pain and bleeding. TECHNIQUE: Transabdominal and Transvaginal. Duplex Color Doppler used: Yes. COMPARISON: None available FINDINGS: Uterus: Present. Size: 8.8 x 4.6 x 5.2 cm. Endometrial complex: Normal measuring 4 mm. Mass lesions: None. Additional findings: None. Right Ovary -- Normal. Blood flow: Normal. Cyst or mass: 1.2 x 0.8 x 1.5 cm right ovarian follicular cyst Left Ovary-- Normal. Blood flow: Normal. Cyst or mass: Small complex hyperechoic lesion left ovary measuring 7 mm could represent dystrophic calcification or ovarian dermoid. Urinary Bladder: Normal. Free Fluid: None. Additional Findings: None. IMPRESSION: 1. Tiny 7 mm left ovarian hyperechoic lesion characteristic for dermoid versus dystrophic calcification. 2. Otherwise negative pelvic ultrasound - Medical Decision Making Patient was examined by me. Patient is nontoxic appearing and stable. Vitals are normal. Obtained labs, pelvic and transvaginal ultrasound. Given analgesics while in the ER. Urinalysis positive for acute cystitis, all other labs are unremarkable. 1. Tiny 7 mm left ovarian hyperechoic lesion characteristic for dermoid versus dystrophic calcification. 2. Otherwise negative pelvic ultrasound Physical findings susceptible of cervical muscle strain. Start Bactrim and Pyridium for acute cystitis. Patient informed of results. Instructed to take Tylenol or ibuprofen for pain. Follow up with bindery manager or return to the ER with worsening symptoms. Patient discharged home in stable condition. Critical care attestation.: If time is entered above; I have spent that time in minutes in the direct care of this critically ill patient, excluding procedure time. ED Disposition Clinical Impression: Pelvic pain, Vaginal bleeding Acute cystitis Qualifiers: Hematuria presence: with hematuria Qualified Code(s): N30.01 - Acute cystitis with hematuria Disposition: TO HOME OR SELFCARE Is pt being admited?: No Condition: Stable Instructions: Urinary Tract Infection in Women (ED) Additional Instructions: Increase fluid intake to 1-2 L per day. Follow up with the bindery manager from the referral list below. Prescriptions: Sulfamethoxazole/Trimethoprim [Bactrim DS TAB] 1 each PO BID #6 tablet Phenazopyridine [Pyridium] 200 mg PO TID #6 tab Referrals: [facility] [Provider Group] - 3-5 Days [facility] [Provider Group] - 3-5 Days [facility] [Outside] - 3-5 Days [facility] [Outside] - 3-5 Days Forms: Accompanied Note Time of Disposition: 18:49
[2019-03-15] MEDS ORDERED: IBUPROFEN 800 MG TAB PO ONE (14:52)
--- NOTE | 2019-03-15 18:37 | Ultrasound Report ---
ULTRASOUND PELVIS INDICATION: pelvic pain and bleeding. TECHNIQUE: Transabdominal and Transvaginal. Duplex Color Doppler used: Yes. COMPARISON: None available FINDINGS: Uterus: Present. Size: 8.8 x 4.6 x 5.2 cm. Endometrial complex: Normal measuring 4 mm. Mass lesions: None. Additional findings: None. Right Ovary -- Normal. Blood flow: Normal. Cyst or mass: 1.2 x 0.8 x 1.5 cm right ovarian follicular cyst Left Ovary-- Normal. Blood flow: Normal. Cyst or mass: Small complex hyperechoic lesion left ovary measuring 7 mm could represent dystrophic c alcification or ovarian dermoid. Urinary Bladder: Normal. Free Fluid: None. Additional Findings: None. IMPRESSION: 1. Tiny 7 mm left ovarian hyperechoic lesion characteristic for dermoid versus dystrophic calcificati on. 2. Otherwise negative pelvic ultrasound Signer Name: Conor Jose MD Signed: 03/15/2019 6:32 PM Workstation Name: [id number]
[2019-03-15 18:53] VITALS: BP 116/68
== END 2019-03-15 19:03 | disposition home or self-care (01) ==
LOC: ED 10:41
DX: O23.11 Infections of bladder in pregnancy, first trimester (principal); O99.331 Smoking (tobacco) complicating pregnancy, first trimester; F12.10 Cannabis abuse, uncomplicated; Z79.899 Other long term (current) drug therapy; Z3A.12 12 weeks gestation of pregnancy
CPT/HCPCS: 36415; 76830; 76856; 81001; 84702; 85025; 86900; 86901; 87086